=== PATIENT | male | born 1985 | race Caucasian/White ===

== ENCOUNTER 2018-03-01 16:23 | Emergency (ER) | payer OTHER ==
[2018-03-01 16:29] VITALS: BP 134/87
--- NOTE | 2018-03-01 16:52 | EDPHY ---
H & P Stated Complaint: [facility] - Trouble Sleeping, [place] Time Seen by Provider: 03/01/18 16:45 HPI/ROS: CHIEF COMPLAINT: Hit head 5 days ago, headache, insomnia HISTORY OF PRESENT ILLNESS: 32-year-old male arrives via private vehicle. 5 days ago patient was moving boxes, went through a doorway, impacted the vertex of his head against a bar. No loss of consciousness . [place] temporarily dazed. For the past 5 days he has been experiencing nonprogressive headache, insomnia , photophobia. Denies: Anticoagulant use, coagulopathy, midline C-spine pain, nausea, vomiting, peripheral paresthesia, weakness, numbness. REVIEW OF SYSTEMS: 10 systems reviewed and negative with the exception of the elements mentioned in the history of present illness PAST MEDICAL/SURGICAL HISTORY: no anticoagulant use, no relevant medical/ surgical history SOCIAL HISTORY: denies alcohol use at time of incident. 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 Appears to be in no acute distress. Answering questions appropriately. 2) HEAD: Normocephalic, irritation erythema to the vertex with no hematoma no depression. 3) HEENT: Pupils equal, round, reactive to light bilaterally. Negative Horners. Nasopharynx, oropharynx, clear. No deformity or angulation of nose. No septal hematoma. No rhinorrhea. No oral trauma. Ears bilaterally with normal tympanic membranes. No hemotympanum. No fluid or blood in the external auditory canal. No raccoon eyes. No Sin sign. Teeth are normally aligned with no gross malocclusion, TMJ bilaterally nontender, facial bones nontender including the zygomatic arch, maxilla mandible. 4) NECK: No cervical collar is on. Posterior cervical spine is nontender, no stepoff, no effusion. Full range of motion which does not elicit any midline cervical spine pain, no posterior midline tenderness, no step-off. 5) LUNGS: Clear to auscultation bilaterally, no wheezes, no rhonchi, no retractions. No obvious signs of trauma. No chest wall pain. No flaring, no grunting. Moving symmetrically. No crepitus. 6) HEART: [Regular rate and rhythm, 7) ABDOMEN: No guarding, no rebound, no focal tenderness, no peritoneal signs, no signs of trauma, no ecchymosis 8) MUSCULOSKELETAL: Moving all extremities, no focal areas of tenderness, no obvious trauma. 9) BACK: No midline vertebral tenderness, no fluctuance, no step-off, no obvious trauma, no visual or palpable abnormality. 10) SKIN: No laceration. No abrasion 11) NEURO: Awake, alert, and oriented to person, place and time. Answers questions appropriately. There were no obvious focal neurologic abnormalities. No cerebellar dysfunction. Cranial nerves 2 through to 12 intact. Normal steady gait. Upper and lower extremities bilaterally with strength 5 / 5, reflexes 2+. DIFFERENTIAL DIAGNOSIS: Not necessarily in any particular order, my differential diagnosis includes, but is not limited to, concussion, skull fracture, intraparenchymal contusion, subarachnoid, subdural and epidural hematoma. The patient understands that this diagnosis is provisional and can never be 100% accurate. - Personal History Current Tetanus Diphtheria and Acellular Pertussis (TDAP): Yes Tetanus Vaccine Date: 2015 - Medical/Surgical History Hx Asthma: No Hx Chronic Respiratory Disease: No Hx Diabetes: No Hx Cardiac Disease: No Hx Renal Disease: No Hx Cirrhosis: No Hx Alcoholism: No Hx HIV/AIDS: No Hx Splenectomy or Spleen Trauma: No Other PMH: l4-l5 herniated disc, abd hernia, season allergies - Social History Smoking Status: Current some day smoker Constitutional: Initial Vital Signs Temperature (C) 36.8 C 03/01/18 16:26 Heart Rate 80 03/01/18 16:26 Respiratory Rate 18 03/01/18 16:26 Blood Pressure 134/87 H 03/01/18 16:26 O2 Sat (%) 97 03/01/18 16:26 O2 Delivery Mode Room Air Allergies/Adverse Reactions: No Known Allergies Allergy (Unverified 03/01/18 16:25) Home Medications: Medication Instructions Recorded NK [No Known Home Meds] 03/01/18 Medical Decision Making ED Course/Re-evaluation: 4:52 p.m.: I had the patient's symptoms are more than likely secondary to post concussive syndrome. Patient and I had a lengthy discussion, we discussed indications , risks , benefits of CT imaging. Given his current presenting signs and symptoms I do not think that the benefits outweigh the risks as I have a low pretest suspicion for intracranial hemorrhage and/or skull fracture. Nonetheless this has been offered the patient, and he is in agreement he does not feel is indicated. I have provided him my usual and customary head injury precautions and instructions including, but not limited to, second impact syndrome. He feels comfortable being discharged. All questions and concerns addressed by myself. Care of patient under supervision of primary Supervising physician Dr Allen . Departure - Departure Disposition: Home, Routine, Self-Care Clinical Impression: Post concussive syndrome Head injury Qualifiers: Encounter type: initial encounter Qualified Code(s): S09.90XA - Unspecified injury of head, initial encounter Condition: Good Instructions: Concussion (ED), Head Injury (ED) Additional Instructions: ALTHOUGH THERE IS NO EVIDENCE OF SERIOUS HEAD INJURY AT THIS TIME, DELAYED SIGNS CAN APPEAR 24 TO 48 HOURS AFTER INJURY. PLEASE RETURN TO THE EMERGENCY DEPARTMENT (ED) IMMEDIATELY IF YOU HAVE INCREASED HEADACHE, PERSISTENT HEADACHE , VOMITING, WEAKNESS, CONFUSION OR VISUAL PROBLEMS. WE RECOMMEND THAT YOU DO NOT RESUME CONTACT SPORTS OR ACTIVITIES THAT TAKE COORDINATION OR BALANCE SUCH SKIING OR RIDING A BICYCLE UNTIL CLEARED TO DO SO BY YOUR DOCTOR OR BY A NEUROLOGIST. Referrals: Linda Schuster MD [Medical Doctor] - 5-7 days, call for appt.
== END 2018-03-01 16:59 | disposition home or self-care (01) ==
DX: S09.90XA Unspecified injury of head, initial encounter (principal); G47.00 Insomnia, unspecified; W22.8XXA Striking against or struck by other objects, initial encounter; Y92.9 Unspecified place or not applicable; Y93.9 Activity, unspecified; Y99.9 Unspecified external cause status

== ENCOUNTER 2018-03-10 17:14 | Emergency (ER) | payer OTHER ==
[2018-03-10 17:20] VITALS: BP 119/73
--- NOTE | 2018-03-10 17:39 | EDPHY ---
H & P Time Seen by Provider: 03/10/18 17:15 HPI/ROS: CHIEF COMPLAINT: Headache and forehead abrasion HISTORY OF PRESENT ILLNESS: Patient was seen here last week for concussion when he hit his head accidentally on the metal bar in his closet where he hangs his clothes. He was doing better over the last couple of days except still had headache and some pressure in his ears and some difficulty sleeping. Today he was under the desk trying to fix the computer and accidentally hit his forehead on his computer. He did not have seizure activity or loss of consciousness. No vomiting. He has does have a little bit more of a headache frontally, no visual symptoms, no weakness or numbness in extremities, no neck pain. Happened around noon today. REVIEW OF SYSTEMS: Eye: no change in vision ENT: Fullness in his ears since hitting his head last week Cardiac: no chest pain or syncope Pulmonary: No short of breath Abdomen: No vomiting Musculoskeletal: No neck or back pain Skin: no rash Neuro: HPI Constitutional: no fever : no urinary symptoms A comprehensive 10 point review of systems is otherwise negative aside from elements mentioned in the history of present illness. PAST MEDICAL HISTORY: Lumbar herniated disc, abdominal hernia Social history: Recently moved here from [place], nonsmoker General Appearance: Alert and conversant, cooperative. Eyes: No scleral icterus. Pupils equal reactive extraocular motion intact no nystagmus. ENT, Mouth: Normal mucous membranes. No hemotympanum. Respiratory: Normal respiratory effort, breath sounds equal, lungs are clear to auscultation. Cardiovascular: Regular rate and rhythm. Gastrointestinal: Abdomen is soft and non tender. Neurological: Alert, face symmetric, normal motor and sensory in extremities. [id number] normal bilaterally, no pronator drift, fluent speech, negative Romberg. Can do tandem gait. Skin: 1.5 cm forehead abrasion, nonsuturable. Musculoskeletal: No spinal tenderness. Psychiatric: Not agitated. Emergency Department course/MDM: Likely reaggravated his concussion with his minor head trauma today. Tetanus up-to-date, forehead abrasion is nonsuturable. Does not have red flags to suggest she is at high risk for intracranial bleed, subarachnoid or epidural or subdural, or skull fracture or other neurosurgical emergent condition. Symptomatic treatment discussed, referral to Dr. Schuster if he is still having concussion symptoms in a week. Smoking Status: Former smoker Constitutional: Initial Vital Signs Temperature (C) 36.7 C 03/10/18 17:16 Heart Rate 62 03/10/18 17:16 Respiratory Rate 16 03/10/18 17:16 Blood Pressure 119/73 03/10/18 17:16 O2 Sat (%) 98 03/10/18 17:16 O2 Delivery Mode Room Air Allergies/Adverse Reactions: No Known Allergies Allergy (Verified 03/10/18 17:20) Home Medications: Medication Instructions Recorded NK [No Known Home Meds] 03/01/18 MDM/Departure - Depart Disposition: Home, Routine, Self-Care Clinical Impression: Post concussion syndrome Forehead abrasion Qualifiers: Encounter type: initial encounter Qualified Code(s): S00.81XA - Abrasion of other part of head, initial encounter Condition: Good Instructions: Abrasion (ED), Post Concussion Syndrome (ED) Referrals: Linda Schuster MD [Medical Doctor] - 5-7 days, if not improved
== END 2018-03-10 17:55 | disposition home or self-care (01) ==
DX: F07.81 Postconcussional syndrome (principal); Z87.891 Personal history of nicotine dependence